=== PATIENT | female | born 1960 | race Caucasian/White ===

== ENCOUNTER → 2018-04-17 | Outpatient (CLI) | payer OTHER ==
[~2018-04-17] MED LIST: BENADRYL25 M1; DIOVAN HCT 1601 EACH PO; DIOVAN160 MG PO; DIPHENHYDRAMINE50 M1 PO; LEXAPRO10 MG PO
--- NOTE | 2018-04-17 11:42 | Diagnostic Imaging Report ---
EXAMINATION: CHEST 2 VIEWS INDICATION: Chest pain COMPARISON: None FINDINGS: TUBES and LINES: None. LUNGS: Lungs are well inflated. Lungs are clear. There is no evidence of pneumonia or pulmonary edema. PLEURA: No pleural effusion or pneumothorax. HEART AND MEDIASTINUM: The cardiomediastinal silhouette is unremarkable. BONES AND SOFT TISSUES: No acute osseous lesion. Soft tissues are unremarkable. UPPER ABDOMEN: No free air under the diaphragm. IMPRESSION: No acute thoracic abnormality. Signed by: Dr. Luis Alcantar M.D. on 04/17/2018 11:38 AM
== END ==
LOC: RAD 10:45
PROVIDERS: ATTEND General Practice
DX: R07.9 Chest pain, unspecified (principal)
CPT/HCPCS: 71046; 93005